=== PATIENT | female | born 1965 | race Caucasian/White ===

== ENCOUNTER 2016-05-18 01:04 | Emergency (ER) | payer BC ==
[2016-05-18 01:04] VITALS: BMI 29.0
[2016-05-18] MEDS ORDERED: COCAINE 4% TOPICAL SOLN 4 ML BOT TOP ONE (01:38)
--- NOTE | 2016-05-18 01:40 | EDPRACDOC ---
- General Information Chief Complaint: Bleeding (Rectal &/or other) Stated Complaint: NOSE BLEED Time Seen by Provider: 05/18/16 01:36 Information Source: Patient, Family Home Medications: Home Medications Ondansetron HCl [Zofran] 8 mg PO Q6-8H PRN 02/09/16 Promethazine HCl [Phenergan] 12.5 mg PO Q6 PRN 02/09/16 Morphine Sulfate [Morphine Sulfate ER] 1 - 2 tab PO Q4-6H PRN 04/22/16 Fluconazole 100 mg PO DAILY 05/18/16 Levofloxacin 750 mg PO DAILY 05/18/16 Allergies/Adverse Reactions: Allergies Allergy/AdvReac Type Severity Reaction Status Date / Time lorazepam [From Ativan] Allergy Confusion Verified 05/18/16 01:22 - History of Present Illness Onset: 46 HPI: PT WELL KNOWN TO ME; HERE WITH EPISTAXIS. 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 NOSEBLEED TONIGHT. STOPPED NOW. ED Past Medical History - History Reviewed Yes Nurses notes reviewed and agree except as marked - Patient Medical History Neurological History: Denies: Cerebrovascular Accident, Seizures, Dementia, Guillian-Slaton Syndrome, Parkinson's, Multiple Sclerosis Cardiac History: Denies: Syncope Respiratory History: Reports: Cough. 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)), Anemia (chemo induced) Surgical History: Reports: Other (Excision of sarcoma anterior thigh) Date of Last Radiation Treatment: none Date of Last Chemotherapy Date: 04/09/16 - Family Medical History Reports: Hypertension (parents and sister), Diabetes (Father type 2), Cancer ( mother colon cancer), Stroke (father), Cardiac Disorders (father) - Social Medical History Smoking Status: Never smoker Social History: Denies: Substance Use Disorder EDM Review of Systems - Review of Systems ROS Negative Except as Marked: Yes All systems reviewed and were negative except as marked - Physical Exam Constitutional: Alert (Awake), No apparent distress Oriented to: Time, Person, Place Last recorded Vital Signs: Last Vital Signs Temp 98.5 F 05/18/16 01:15 Pulse 121 H 05/18/16 01:15 Resp 20 01/08/17 01:15 BP 138/67 05/18/16 01:15 Pulse Ox 96 05/18/16 01:15 Oxygen Pulse Oxygen Saturation 96 O2 Device Oxygen Flow Rate Fraction of Inspired Oxygen ( FIO2) - HEENT Head: Normal ( normocephalic) Eye Exam: Normal (PERRL, EOMI, Sclera white) Oropharynx: Normal (Pharynx:Moist without exudate,Gums-no swelling) Tympanic Membrane: Normal ENT EAC: Normal TMJ: Normal Nose: Bleeding Neck: Normal (FROM, trachea at midline) - Respiratory/Cardiovascular Respiratory: Normal - CTA (BBS clear to auscultation without adventitious sounds ) Cardiovascular: Normal (RRR without murmur, gallop or rub) - GI Auscultation: Normal (NABS) Palpation: Normal (Soft,No rebound or guarding, non distended) Tenderness: Non tender Henderson's Sign: Negative - Musculoskeletal Back: Normal (Non-Tender) Extremities: Normal (Normal tone, Pulses 2+ No cyanosis or edema, FROM) - Integumentary Skin: Normal, Warm, Dry Lymphatics: Normal (no adenopathy) - Neurologic Memory Impaired: Normal Motor Function: Normal (Normal tone, Pulses 2+ No cyanosis or edema, FROM) Cranial Nerve: Normal (CN II-X11 intact sensation, strength 5/5) Cerebellar: Normal Mood Description: Normal Perception: Normal ED Procedures - Nasal Cautery and Pack Informed of risks, benefits and alternatives described: Yes Informed Consent Signed: Verbal Indication: Anterior Epistaxis Silver Nitrate cautery performed around bleeding site: Yes Hemostasis was obtained: Yes Packing used: Expanding sponge - Results 05/18/16 01:52 05/18/16 01:52 - Additional Information MD NOTE PT NEEDS PLATELETS. WE DO NOT HAVE PLATELETS HERE AT . CONTACTED [facility]---- DR. LUCAS WITH HEM/ONC. SHE ACCEPTED PT MD NOTE SEEN PRIOR TO TRANSFER. STABLE AT THIS TIME. PULSE HAS DECREASED. - Departure Yes I personally saw and evaluated the patient. Disposition: Trans. to Other Hospital Condition: Good Final Diagnosis: EPISTAXIS, PANCYTOPENIA Instructions: Nosebleed (ED) Education/Counseling Given To: Patient, Family Member Education/Counseling Given Regarding: Diagnosis, Treatment, Prognosis Referrals: None,No Provider [Primary Care Provider] - One Week Decision to Transfer Time: 02:11 (ONCOLOGY AT [facility])
[2016-05-18] MEDS ORDERED: SILVER NITRATE APPLICATOR TOP ONE (01:56)
[2016-05-18 02:06] LABS: AUTOMATED EOSINOPHIL 4.1 % (0-5); AUTOMATED LYMPH 38.4 % (17-44); AUTOMATED MONOCYTE 30.8 % (3-10); AUTOMATED NEUTROPHIL 26.7 % (45-76); MPV 10.6 fL (7.4-10.4)
[2016-05-18] MEDS ORDERED: NS 1,000 ML IV ONE (02:12)
[2016-05-18 02:32] LABS: BLOOD UREA NITROGEN 21 MG/DL (7-17); CALC CORRECTED 9.5 MG/DL (8.4-10.2); CALCIUM 9.4 MG/DL (8.4-10.2); CALCULATED OSMOLALITY 274 MOs/Kg (270-290); CHLORIDE 102 mEq/L (98-107); GLUCOSE 158 MG/DL (70-99); SODIUM LEVEL 139 mEq/L (137-146); TOTAL PROTEIN 7.6 G/DL (6.3-8.2)
[2016-05-18 03:58] VITALS: BP 116/66; PULSE 94; TEMP 97.9
== END 2016-05-18 03:55 | disposition short-term general hospital (02) ==
LOC: ED 01:04
DX: R04.0 Epistaxis (principal); D61.818 Other pancytopenia
CPT/HCPCS: 30901; 36415; 80053; 85025; 85610; 96360; 99283; J3490